=== PATIENT | male | born 1950 | race Asian ===

== ENCOUNTER 2017-03-22 07:25 | Day surgery (SDC) | payer OTHER ==
[2017-03-22] MEDS ORDERED: LACTATED RINGERS 1,000 ML IV ONE (07:37)
[2017-03-22] MEDS ORDERED: MIDAZOLAM 2 MG/2 ML VIAL IVP ONE (08:57)
[2017-03-22] MEDS ORDERED: fentaNYL 100 MCG/2 ML VIAL IVP ONE (08:57)
[2017-03-22 10:12] VITALS: BP 141/96
== END 2017-03-22 07:26 | disposition home or self-care (01) ==
LOC: SDS 07:25
PROVIDERS: ATTEND Surgery
PROC: 0DBK8ZX Excision of Ascending Colon, Via Natural or Artificial Opening Endoscopic, Diagnostic (ICD-10-PCS; 2017-03-22)
PROC: 3E0H8GC Introduction of Other Therapeutic Substance into Lower GI, Via Natural or Artificial Opening Endoscopic (ICD-10-PCS; 2017-03-22)
PROC: 0DBN8ZX Excision of Sigmoid Colon, Via Natural or Artificial Opening Endoscopic, Diagnostic (ICD-10-PCS; principal; 2017-03-22 09:00)
DX: Z12.11 Encounter for screening for malignant neoplasm of colon (principal); K57.30 Diverticulosis of large intestine without perforation or abscess without bleeding; K62.1 Rectal polyp; D12.5 Benign neoplasm of sigmoid colon; D12.3 Benign neoplasm of transverse colon; D12.2 Benign neoplasm of ascending colon; I10 Essential (primary) hypertension; E11.9 Type 2 diabetes mellitus without complications
CPT/HCPCS: 45380; 45381; 45385; J7120

== ENCOUNTER 2018-11-16 12:48 | Emergency (ER) | payer OTHER ==
[2018-11-16 13:05] VITALS: BP 125/71
--- NOTE | 2018-11-16 14:03 | ED Physician Documentation ---
PD HPI LOWER EXT INJURY - Stated complaint Stated Complaint: R KNEE PAIN - Chief complaint Chief Complaint: Ext Problem - History obtained from History obtained from: Patient - History of Present Illness PD HPI LOW EXT INJURY LOCATION: Right, Knee Type of injury: Fall Timing - onset: How many weeks ago (2) Timing - details: Still present Worsened by: Other (weight bearing.) Associated symptoms: Swelling, Other (spasms when driving.). No: Weakness, Numbness Similar symptoms before: Has not had sx before - Additional information Additional information: The patient is a 68-year-old male who presents with pain in his right knee. 2 weeks ago he slipped and fell, impacting his right knee. He has been ambulatory since that time, but is concerned because he continues to have pain in his right knee, particularly with weightbearing. He also experiences spasms in his right lower leg when sitting in his car driving. He reports pain in his right lower back, over the sciatic region. He denies fever, numbness or weakness, urinary incontinence. Review of Systems Constitutional: denies: Fever Nose: denies: Congestion Cardiac: denies: Chest pain / pressure Respiratory: denies: Dyspnea, Cough GI: denies: Abdominal Pain, Nausea, Vomiting : denies: Dysuria, Incontinent Skin: denies: Rash Musculoskeletal: reports: Back pain (Right lower back.), Joint pain (Right knee.), Pain with weight bearing Neurologic: denies: Focal weakness, Numbness, Headache PD PAST MEDICAL HISTORY - Past Medical History Past Medical History: Yes Cardiovascular: Hypertension Respiratory: None Endocrine/Autoimmune: Type 2 diabetes GI: None : None HEENT: Chronic vision loss Psych: None Musculoskeletal: Gout, Chronic back pain Derm: Other - Past Surgical History Past Surgical History: Yes General: Colonoscopy - Present Medications Home Medications: Ambulatory Orders Medication Instructions Recorded Confirmed Allopurinol 100 mg PO DAILY 03/22/17 03/22/17 Aspirin [Adult Low Dose Aspirin EC] 81 mg PO DAILY 03/22/17 03/22/17 Metformin HCl 500 mg PO BID 03/22/17 03/22/17 Potassium Chloride [Klor-Con 10] 10 meq PO DAILY 03/22/17 03/22/17 Telmisartan/Hydrochlorothiazid 1 each PO DAILY 03/22/17 03/22/17 [Micardis Hct 80-12.5 mg Tablet] - Allergies Allergies/Adverse Reactions: Allergies Allergy/AdvReac Type Severity Reaction Status Date / Time No Known Drug Allergies Allergy Verified 11/16/18 13:05 - Social History Does the pt smoke?: Yes Smoking Status: Current every day smoker Does the pt drink ETOH?: No Does the pt have substance abuse?: No PD ED PE NORMAL - Vitals Vital signs reviewed: Yes (normal) - General General: Alert and oriented X 3, Well developed/nourished - HEENT HEENT: Atraumatic - Neck Neck: No bony TTP - Cardiac Cardiac: RRR - Respiratory Respiratory: No respiratory distress, Clear bilaterally - Abdomen Abdomen: Soft, Non tender - Back Back: No CVA TTP, No spinal TTP, Other (There is tenderness to palpation of the right sciatic notch, without tenderness over the spinous processes of the lumbar spine.) - Derm Derm: No rash - Extremities Extremities: No edema, No calf tenderness / cord, Other (There is tenderness to palpation of the right sciatic notch, without tenderness over the spinous processes of the lumbar spine.) - Neuro Neuro: Alert and oriented X 3, No motor deficit, No sensory deficit Results - Vitals Vitals: Oxygen O2 Source Room air - Rads (name of study) right knee Radiology: Prelim report reviewed, EMP read contemporaneously, See rad report (Anterior soft tissue swelling. No acute fracture or joint effusion. Chronic patellar spurring.) PD MEDICAL DECISION MAKING - ED course Complexity details: reviewed results, re-evaluated patient, considered differential, d/w patient ED course: The patient's presentation is most consistent with contusion/sprain of the right knee. X-ray of the knee reveals small joint effusion, with no acute bony abnormality detected. In addition the patient has symptoms of right sided sciatica. Treatment in the emergency department included administration of ibuprofen 800 mg orally. An ice pack was applied to his knee. I discussed with him the results of his x-ray, expected course of injury, symptomatic treatment and outpatient follow-up, as well as potentially worrisome signs or symptoms that should prompt reevaluation in the emergency department. Departure - Departure Disposition: 01 Home, Self Care Clinical Impression: Contusion of right knee Qualifiers: Encounter type: initial encounter Qualified Code(s): S80.01XA - Contusion of right knee, initial encounter Sciatica Qualifiers: Laterality: right Qualified Code(s): M54.31 - Sciatica, right side Condition: Stable Instructions: ED Sprain Knee, ED Sciatica Follow-Up: Stephanie Kern MD [Primary Care Provider] - Comments: Apply ice pack to your knee intermittently for the next 3 or 4 days. You can use ibuprofen, up to 800 mg 3 times daily for its anti-inflammatory effe ct. Let pain be your guide to activity level. Follow-up with your primary physician within 2 weeks. Call to schedule an appointment. Return to the emergency department if you develop increasing pain, or otherwise worsening symptoms. Discharge Date/Time: 11/16/18 15:30
--- NOTE | 2018-11-16 14:55 | XRAY Report ---
Reason: right knee injury Procedure Date: 11/16/2018 Accession Number: [id number] / [id number] Procedure: XR - Knee 3 View RT CPT Code: FULL RESULT: EXAM: RIGHT KNEE RADIOGRAPHY EXAM DATE: 11/16/2018 02:37 PM. CLINICAL HISTORY: Right knee injury. COMPARISON: None. TECHNIQUE: 3 views. FINDINGS: Bones: Negative for an acute fracture. There is a moderate degree of chronic spurring on the patella and anterior tibial tubercle. Joints: The joint space is preserved. There is no joint effusion. Soft Tissues: There is soft tissue swelling anterior to the lower patella. IMPRESSION: 1. Anterior soft tissue swelling. No acute fracture or joint effusion. Chronic patellar spurring. RADIA
== END 2018-11-16 15:30 | disposition home or self-care (01) ==
LOC: ED 12:48
DX: S80.01XA Contusion of right knee, initial encounter (principal); W01.0XXA Fall on same level from slipping, tripping and stumbling without subsequent striking against object, initial encounter; M54.31 Sciatica, right side; I10 Essential (primary) hypertension; E11.9 Type 2 diabetes mellitus without complications; Z79.84 Long term (current) use of oral hypoglycemic drugs; F17.200 Nicotine dependence, unspecified, uncomplicated
CPT/HCPCS: 99282; 99283

== ENCOUNTER 2019-02-23 09:00 | Outpatient (CLI) | payer OTHER ==
--- NOTE | 2019-02-23 15:52 | XRAY Report ---
Reason: LEFT ANKLE PAIN Procedure Date: 02/23/2019 Accession Number: [id number] / [id number] Procedure: WCP - Ankle 3 View LT CPT Code: FULL RESULT: EXAM: LEFT ANKLE RADIOGRAPHY EXAM DATE: 02/23/2019 02:12 PM. CLINICAL HISTORY: Left ankle pain. Left heel pain. COMPARISON: None. TECHNIQUE: 3 views. FINDINGS: Bones: No acute fracture or bony lesion. Prominent posterior and plantar calcaneal spurs. Degenerative spurring. Joints: Ankle mortise is well-maintained. There is joint space narrowing. No dislocation. Soft Tissues: Irregular calcifications are seen in the distal Achilles tendon soft tissues consistent with calcific tendinitis. Thickening of the distal Achilles tendon by the insertion noted. IMPRESSION: 1. Plantar and posterior calcaneal spurs. 2. Distal Achilles calcification and thickening, which can be seen with Achilles tendinosis. 3. Degenerative changes of the left ankle. RADIA
== END 2019-02-23 23:59 | disposition home or self-care (01) ==
LOC: DI.WCP 09:00 → EDSTATUS 13:00 → DI.WCP 23:59
PROVIDERS: ATTEND Family Medicine
DX: M77.32 Calcaneal spur, left foot (principal); M65.872 Other synovitis and tenosynovitis, left ankle and foot; M19.072 Primary osteoarthritis, left ankle and foot

== ENCOUNTER 2020-03-08 07:03 | Outpatient (CLI) | payer OTHER ==
--- NOTE | 2020-03-08 14:06 | Ultrasound Report ---
PROCEDURE: Aorta Screening INDICATIONS: TOBACCO SMOKER TECHNIQUE: Real time scanning was performed of the aorta and iliac arteries, with image documentatio n. COMPARISON: None available FINDINGS: Aorta: Proximal aortic diameter measures 2.6 x 2.5 cm. Mid-aorta measures 2.7 x 2.4 cm. Distal aor tic diameter is 2.3 x 2.5 cm. Iliac arteries: Right common iliac artery measures 2 x 1.7 cm. Left common iliac artery measures 2 x 1.6 cm. Atherosclerotic plaque and be seen throughout. IMPRESSION: Negative for aneurysm. Reviewed by: Michi Beltran MD on 03/08/2020 1:05 PM RONNY Approved by: Michi Beltran MD on 03/08/2020 1:05 PM RONNY Station ID: [id number]
== END 2020-03-08 07:04 | disposition home or self-care (01) ==
LOC: DI 07:03
PROVIDERS: ATTEND Family Medicine
DX: Z13.6 Encounter for screening for cardiovascular disorders (principal); F17.200 Nicotine dependence, unspecified, uncomplicated
CPT/HCPCS: 76706

== ENCOUNTER 2020-05-07 06:36 | Day surgery (SDC) | payer OTHER ==
[2020-05-07] MEDS ORDERED: LACTATED RINGERS 1,000 ML IV ONE ×2 (06:43→13:45)
--- NOTE | 2020-05-07 10:55 | HISTORY & PHYSICAL EXAMINATION ---
Chief Complaint - Chief Complaint Chief Complaint: History of adenomatous polyp here for surveillance History of Present Illness - Admitted From Admitted From:: [facility] - History Obtained From Records Reviewed: Patient History obtained from: Patient Exam Limitations: None - History of Present Illness HPI Comment/Other: 70-year-old male relatively recent immigrant from the [facility] in 2010. Reports 2017 colonoscopy with polyps for which repeat surveillance was recommended at 3 years. Patient with left chest 24 hours erythema and associated pruritus. Reported history of shingles. Given concern for active dermatomal distribution of shingles left chest, I was notified in anticipation of pending colonoscopy for active lesions. Requested input from hospitalist service, Dr. Anna Quiñones, as well as other members of the hospital staff for input. Patient reports this has been ongoing for several days denies any associated immunocompromise state. With regard to his historic infectious disease history has been treated for presumptive tuberculosis on arrival to this country and has no active pulmonary symptoms or other concerns. History - Past Medical History Cardiovascular: reports: Hypertension, High cholesterol, Other Respiratory: reports: None Endocrine/Autoimmune: reports: Type 2 diabetes GI: reports: None, Colon polyps : reports: None HEENT: reports: None Psych: reports: Anxiety Musculoskeletal: reports: Gout Derm: reports: Other MRSA Hx?: No - Past Surgical History General: reports: Colonoscopy Meds/Allgy - Home Medications Home Medications: Ambulatory Orders Medication Instructions Recorded Confirmed Aspirin [Adult Low Dose Aspirin EC] 81 mg PO DAILY 03/22/17 05/07/20 Metformin HCl 500 mg PO BID 03/22/17 05/07/20 Potassium Chloride [Klor-Con 10] 10 meq PO DAILY 03/22/17 05/07/20 Telmisartan/Hydrochlorothiazid 1 each PO DAILY 03/22/17 05/07/20 [Micardis Hct 80-12.5 mg Tablet] allopurinoL [Allopurinol] 100 mg PO DAILY 03/22/17 05/07/20 - Allergies Allergies/Adverse Reactions: Allergies Allergy/AdvReac Type Severity Reaction Status Date / Time No Known Drug Allergies Allergy Verified 05/07/20 06:49 Review of Systems - Other Findings Other Findings: Patient with no acute symptoms. He has no associated weakness or other worrisome features. He has no immunocompromise state. He denies any chest pain shortness of breath. Walks 2 flights of stairs with no compromise. 10 review of systems negative except as reported above. With regard to the patient's left chest dermatomal distribution of erythematous lesion he reports first episode. He has not undergone any other vaccinations as it relates to shingles or otherwise. Exam - Vital Signs Reviewed Vital Signs: Yes Vital Signs: Vital Signs x48h Temp Pulse Resp BP Pulse Ox 05/07/20 06:58 36.0 C L 112 H 16 120/93 H 95 - Physical Exam General Appearance: positive: No acute distress, Alert Eyes Bilateral: positive: Normal inspection, PERRL, EOMI ENT: positive: ENT inspection nml Neck: positive: Nml inspection Respiratory: positive: Chest non-tender, No respiratory distress, Breath sounds nml. negative: Wheezes, Rales, Rhonchi Cardiovascular: positive: Regular rate & rhythm Abdomen: positive: Non-tender, No organomegaly, Nml bowel sounds, No distention, Tenderness. negative: Guarding, Rebound Rectal: positive: Other (Deferred) Skin: positive: Color nml Extremities: positive: Non-tender, Full ROM, Nml appearance Neurologic/Psychiatric: positive: Oriented x3, CN's nml (2-12), Motor nml, Sensation nml, Mood/affect nml Comments/Other: Left chest at level of nipple extending posteriorly to midline dermatomal distribution erythematous area with no wet vesicular lesions. All dry. Conclusion/Plan - Other Other Results/Comments: 70-year-old male here for surveillance colonoscopy in the setting of historic adenomatous polyps. 3 years prior status post colonoscopy with polypectomy. He presents with what appears to be a shingles episode of the left chest dermatome and its resolution phase. No active vesicles. All dry lesions. Discussed extensively with hospitalist service as well as infectious control Nneka who advised that the patient is appropriate to proceed with procedure. We discussed this in its entirety with the involved staff. We discussed the risks and benefits. As it relates to the patient and for control purposes. Rearrange schedule in such a way in order to adjust that the patient would be last scope of morning procedures and undergo brain cleaned prior to proceeding with subsequent endoscopies. Moreover the patient will be appropriately closed for the upper torso with a longsleeve shirt and we will also advised him to wear gloves and to avoid scratching or touching the lesion for the entirety of his procedure. Again absent any active OPEN lesions the patient is appropriate to proceed. With regard to colonoscopy risk and benefits discussed at length. If this were routine screening we could defer and proceed with stool based DNA screening as well as fit and or fecal occult blood testing however given this is surveillance for known history of polyps this carries with it increased risk. Moreover the patient is already been prepped. And again clinically there is no concerns for active lesions for which shadowing would be expected. Please note that voice recognition software was used to transcribe this note and inadvertent errors might persist in spite of review and editing. I am obliged to you for your attention. I am thankful to you for allowing me to participate with you in this care of this patient.
[2020-05-07] MEDS ORDERED: MIDAZOLAM 2 MG/2 ML VIAL IVP ONE (13:13)
[2020-05-07] MEDS ORDERED: fentaNYL 250 MCG/5 ML VIAL IVP ONE (13:13)
[2020-05-07 14:04] VITALS: BP 129/82
== END 2020-05-07 06:37 | disposition home or self-care (01) ==
LOC: SDS 06:36
PROVIDERS: ATTEND Surgery
PROC: 0DBP8ZZ Excision of Rectum, Via Natural or Artificial Opening Endoscopic (ICD-10-PCS; principal; 2020-05-07 08:00)
DX: Z12.11 Encounter for screening for malignant neoplasm of colon (principal); K62.1 Rectal polyp; K64.8 Other hemorrhoids; K57.30 Diverticulosis of large intestine without perforation or abscess without bleeding; B02.9 Zoster without complications; L29.9 Pruritus, unspecified; I10 Essential (primary) hypertension; E11.9 Type 2 diabetes mellitus without complications; Z79.84 Long term (current) use of oral hypoglycemic drugs
CPT/HCPCS: 45380; J3010; J7120